=== PATIENT | male | born 2000 | race Hispanic/Latino ===

== ENCOUNTER 2024-09-20 19:34 | Observation (INO) | payer SELFPAY ==
[~2024-09-20] VITALS: Ht 172.7 cm; Wt 83.5 kg
[2024-09-20 20:01] LABS: APPEARANCE,URINE CLOUDY (CLEAR); BILIRUBIN,URINE NEGATIVE (NEGATIVE); COLOR,URINE YELLOW (YELLOW); GLUCOSE, URINE (UA) NEGATIVE (NEGATIVE); KETONES,URINE 5 mg/dL (NEGATIVE); LEUKOCYTE ESTERASE ,URINE NEGATIVE Leu/uL (NEGATIVE); NITRATE,URINE NEGATIVE (NEGATIVE); OCCULT BLOOD,URINE NEGATIVE (NEGATIVE); PROTEIN,URINE 30 mg/dL (NEGATIVE)
[2024-09-20 20:05] LABS: BASOPHILS # (AUTO) 0.04 K/uL (0.00-0.20); BASOPHILS % (AUTO) 0.2 % (0.0-5.0); EOSINOPHILS # (AUTO) 0.01 K/uL (0.00-0.70); EOSINOPHILS % (AUTO) 0.1 % (0.0-8.0); HEMATOCRIT 47.5 % (42-54); LYMPHOCYTES % (AUTO) 18.4 % (21.0-51.0); MEAN CORPUSCULAR HEMOGLOBIN 31.2 pg (27.0-33.0); MEAN CORPUSCULAR HGB CONC 36.4 g/dL (32.0-36.0); MEAN CORPUSCULAR VOLUME 85.7 fL (79-99); MONOCYTES # (AUTO) 1.4 K/uL (0.1-1.0); MONOCYTES % (AUTO) 8.4 % (3.0-13.0); NEUTROPHILS # (AUTO) 11.7 K/uL (1.8-7.7); NEUTROPHILS % (AUTO) 72.3 % (40.0-77.0); PLATELET COUNT (AUTO) 270 K/uL (130-400); RED BLOOD CELL COUNT(AUTO) 5.54 MIL/uL (4.50-6.20); RED CELL DISTRIBUTION WIDTH 11.8 % (11.0-15.5); WHITE BLOOD COUNT (AUTO) 16.2 K/uL (4.8-10.8)
[2024-09-20 20:05] LABS: ADD UA MICROSCOPIC YES
[2024-09-20 20:07] LABS: MUCUS,URINE MOD LPF (None Seen); OTHER CASTS, URINE 44 /LPF (None Seen); SQUAMOUS EPITHELIAL CELL,UR RARE /HPF (0-2)
[2024-09-20 20:09] LABS: AMPHET/METH SCREEN,URINE NEGATIVE (NEGATIVE); BARBITURATE SCREEN, URINE NEGATIVE (NEGATIVE); BENZODIAZEPINES SCREEN,URINE NEGATIVE (NEGATIVE); CANNABINOID SCREEN,URINE NEGATIVE (NEGATIVE); COCAINE SCREEN,URINE NEGATIVE (NEGATIVE); OPIATE SCREEN,URINE NEGATIVE (NEGATIVE); PHENCYCLIDINE SCREEN,URINE NEGATIVE (NEGATIVE)
[2024-09-20] MEDS: 0.9%NACL 1000ML 1,000 ML IV STA ×2 (20:13→20:34)
[2024-09-20] MEDS: ondanSETRON 4MG INJ IVP STA (20:13)
[2024-09-20 20:20] LABS: POTASSIUM 3.8 mmol/L (3.5-5.1)
[2024-09-20 20:24] LABS: MAGNESIUM 1.9 mg/dL (1.80-2.40)
--- NOTE | 2024-09-20 20:37 | ERN ---
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 Patient states he also noticed decreased urine output today. 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 Denies having any alcohol or drugs today. Allergies: Coded Allergies: No Known Allergies (Unverified Allergy, Unknown, 09/20/24) Past Medical History Past Medical History: No Pertinent History Surgical History: None Review of System Dictation Constitutional: Negative for fever,chills, and weight loss Eyes: Negative for injury, pain,redness, and discharge ENT: Negative for injury,pain or swelling Cardiovascular: Negative for chest pain, palpitations, and edema Respiratory: Negative for shortness of breath, cough, and wheezing, Abdomen/GI: Negative for abdominal pain, nausea, vomiting, diarrhea, and constipation Back: Negative for injury and pain : Negative for injury, bleeding and discharge MS/Extremity: Negative for injury and deformity Skin: Negative for rash, and discoloration Neuro: Negative for headache, weakness, numbness, tingling, and seizure Psych: Negative for suicide ideation, homicidal ideation, and hallucinations Review of Systems: was completed Initial Vital Sign VS Vital Signs Date Time Temp Pulse Resp B/P (MAP) Pulse Ox O2 Delivery O2 Flow Rate FiO2 09/20/24 19:37 99.9 101 20 112/70 99 Room Air 09/20/24 19:45 0 21 Physical Exam Dictation General: awake, alert, NAD Head/Face: Normocephalic, atraumatic Eyes: PERRL, EOMI, vision at baseline ENT: oral cavity clear, TMs clear, no signs of infection Neck: Trachea midline, supple, no nuchal rigidity Cardiovascular: RRR, normal S1/S2, No MRGs, no JVD Respiratory: CTAB, no respiratory distress, No rales or wheezes Abdomen: Soft, non-tender, non-distended, normal bowel sounds, no guarding or rebound. Skin: Warm, dry, normal turgor, no rash MS/Extremity: Pulses equal, no cyanosis, neurovascular intact, FROM Neuro: COAx4, GCS 15, strength 5/5, CN 2-12 intact, normal cerebellar exam, normal gait, Psych: Normal behavior, mood, and affect normal Results (Laboratory/Radiology) Laboratory/Radiology Laboratory Tests Test 09/20/24 19:48 09/20/24 19:57 Urine Color YELLOW (YELLOW) Urine Appearance CLOUDY (CLEAR) H Urine pH 5.0 (5.0-8.0) Urine Specific [place] 1.027 (1.001-1.031) Urine Protein 30 mg/dL (NEGATIVE) H Urine Glucose (UA) NEGATIVE mg/dL (NEGATIVE) Urine Ketones 5 mg/dL (NEGATIVE) H Urine Occult Blood NEGATIVE (NEGATIVE) Urine Nitrate NEGATIVE (NEGATIVE) Urine Bilirubin NEGATIVE mg/dL (NEGATIVE) Urine Urobilinogen 2.0 mg/dL (0.2-1.0) H Urine Leukocyte Esterase NEGATIVE Gio/uL Urine RBC 2-5 /HPF (0-1) H Urine WBC 2-5 /HPF (0-1) H Urine Squamous Epithelial Cells RARE /HPF (0-2) Urine Bacteria None /HPF (None Seen) Urine Hyaline Casts 11-25 /LPF (0-1 /LPF) H Urine Other Casts 44 /LPF (None Seen) Urine Opiates Screen NEGATIVE (NEGATIVE) Urine Barbiturates Screen NEGATIVE (NEGATIVE) Urine Phencyclidine Screen NEGATIVE (NEGATIVE) Urine Amphetamines Screen NEGATIVE (NEGATIVE) Urine Benzodiazepines Screen NEGATIVE (NEGATIVE) Urine Cocaine Screen NEGATIVE (NEGATIVE) Urine Marijuana (THC) Screen NEGATIVE (NEGATIVE) White Blood Count 16.2 K/uL (4.8-10.8) H Red Blood Count 5.54 MIL/uL (4.50-6.20) Hemoglobin 17.3 g/dL (14.0-18.0) Hematocrit 47.5 % (42-54) Mean Corpuscular Volume 85.7 fL (79-99) Mean Corpuscular Hemoglobin 31.2 pg (27.0-33.0) Mean Corpuscular Hemoglobin Concent 36.4 g/dL (32.0-36.0) H Red Cell Distribution Width 11.8 % (11.0-15.5) Platelet Count 270 K/uL (130-400) Mean Platelet Volume 9.5 fL (7.5-10.5) Immature Granulocyte % (Auto) 0.6 % (0-1) Neutrophils (%) (Auto) 72.3 % (40.0-77.0) Lymphocytes (%) (Auto) 18.4 % (21.0-51.0) L Monocytes (%) (Auto) 8.4 % (3.0-13.0) Eosinophils (%) (Auto) 0.1 % (0.0-8.0) Basophils (%) (Auto) 0.2 % (0.0-5.0) Neutrophils # (Auto) 11.7 K/uL (1.8-7.7) H Lymphocytes # (Auto) 3.0 K/uL (1.0-4.8) Monocytes # (Auto) 1.4 K/uL (0.1-1.0) H Eosinophils # (Auto) 0.01 K/uL (0.00-0.70) Basophils # (Auto) 0.04 K/uL (0.00-0.20) Absolute Immature Granulocyte (auto 0.10 K/uL (0-1) Nucleated Red Blood Cells 0.0 % (0.0-0.19) Red Blood Cell Morphology See comments Sodium Level 135 mmol/L (136-145) L Potassium Level 3.8 mmol/L (3.5-5.1) Chloride Level 92 mmol/L (101-111) L Carbon Dioxide Level 28 mmol/L (21-32) Blood Urea Nitrogen 23 mg/dL (7-18) H Creatinine 2.0 mg/dL (0.5-1.3) H Glomerular Filtration Rate Calc 47 mL/min (>90) Random Glucose 109 mg/dL (70-105) H Total Calcium 10.8 mg/dL (8.5-10.1) H Magnesium Level 1.90 mg/dL (1.80-2.40) Total Creatine Kinase 283 U/L (21-232) H Labs Reviewed?: Yes ED Course ED Course Orders Procedure Category Date Status Time Cbc With Differential LAB 09/20/24 Complete 19:40 Basic Metabolic Panel LAB 09/20/24 Complete 19:40 Creatine Kinase, Total LAB 09/20/24 Complete 19:40 Urinalysis Profile LAB 09/20/24 Complete 19:40 Drug Screen Urine LAB 09/20/24 Complete 19:40 Magnesium LAB 09/20/24 Complete 19:40 0.9%Nacl 1000ml (Ns PHA 09/20/24 Complete 1000ml) 19:40 Ondansetron 4mg Inj PHA 09/20/24 Complete (Zofran 4mg Inj) 19:41 0.9%Nacl 1000ml (Ns PHA 09/20/24 In Process 1000ml) 20:21 Current Medications Medications (Trade) Dose Ordered Sig/Ishaan Route PRN Reason Start Time Stop Time Status Last Admin Dose Admin Ondansetron HCl (zoFRAN 4MG INJ) 4 mg ONCE STAT IVP 09/20/24 19:41 09/20/24 19:42 DC 09/20/24 20:13 Sodium Chloride 1,000 ml @ 1,000 mls/hr Q1H STAT IV 09/20/24 19:40 09/20/24 20:39 DC 09/20/24 20:13 Sodium Chloride 1,000 ml @ 1,000 mls/hr Q1H STAT IV 09/20/24 20:21 09/20/24 21:20 09/20/24 20:34 Vital Signs Date Time Temp Pulse Resp B/P (MAP) Pulse Ox O2 Delivery O2 Flow Rate FiO2 09/20/24 19:45 99.1 88 18 142/66 99 Room Air* 0 21 09/20/24 19:37 99.9 101 20 112/70 99 Room Air Medical Decision Making MDM MDM: 23-year-old male with no past medical history coming in with complaints of generalized muscle spasms, nausea, and syncopal episode while at work. Patient states he also noticed decreased urine output today. 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 Denies having any alcohol or drugs [place] [id number], no anemia, no thrombocytopenia. Chemistry shows mild hyponatremia at 1:35 a.m., hypochloremia 92, QASIM BUN creatinine are elevated this could be related to dehydration. Magnesium is 1.9 and CK is 283. Urine shows proteinuria, but no infection process. Toxicology is negative. Patient received 2 L of NS in the emergency room. Patient is refusing a CT scan of the head. Educated patient is important to do CT scans that he has a syncopal episode to rule out any life-threatening etiology for her syncopal episode, patient understand but still refused CT scan. Patient will be admitted for observation for QASIM and dehydration. Spoke to Rowena AUTOMATIC DRILLING MACHINE OPERATOR for hospitalist, okay to admit. Differential diagnosis: QASIM, dehydration, electrolyte abnormality. Rationale: Tests considered and ordered secondary to shared decision making i nclude: labs, ECG and radiology Previous outside records reviewed: Old ER visits. Risk of complication and/or morbidity or mortality of patient management: None Medications-Per medication reconciliation Need for hospitalization: Patient does meet criteria for hospitalization. Need for emergency major/minor surgery: No There are no social concerns with this patient. Prescription drug management Prescriptions will include symptomatic care Patient's prior external medical records from other ER visits were reviewed by me as indicated. Prior testing and results from previous visits were reviewed. Prior tests were taken into account with medical decision making and resource utilization, independent historian/historians were used to obtain complete medical history. I independently interpreted the test that were performed, results were reviewed by me and considered findings on radiology if ordered. Medical management and examination interpretation discussions were had by me with other qualified healthcare professionals as indicated for the patient's care. DX & DISP Disposition: Inpatient Decision to Admit Date: Sep 20, 2024 Decision to Admit Time: 21:15 Departure Impression: Primary Impression: Dehydration Additional Impressions: QASIM (acute kidney injury), Syncope Condition: Stable Referrals: CASSIDY PRIEST (PCP) I have reviewed the case, and I agree with, Diagnosis and Plan GINA CURTIS NP Sep 20, 2024 20:37
--- NOTE | 2024-09-20 22:22 | HP ---
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 Seen and examined patient int he ER awake,alert and coherent,moving all extremities equally.Patient denies headache,dizziness,visual disturbance ,chest pain,palpitation and shortness of breath. Latest vital signs temperature 98.8, heart rate 80, blood pressure 128/62 saturation 99% on room air. Labs: WBC 16, hemoglobin 17, hematocrit 47 platelet count 270. Sodium 135, chloride 92 BUN 23, creatinine 2.0, GFR 47 glucose 109, calcium 10 total CK 283. Urine toxicology negative. Urinalysis appears cloudy significant for urine RBC 2-5, urine WBC 2-5 with protein and ketones and urobilinogen. While in the ER patient received 2 L NS bolus, Zofran 4 mg IV. ER called and recommended to admit the patient. REVIEW OF SYSTEMS CONSTITUTIONAL: Complains of generalized muscle spasm Denies fevers, chills, or night sweats. No unintentional weight loss reported. NEUROLOGICAL: Complaints of syncopal episode today Denies headache, amaurosis fugax, motor weakness, sensory deficit, vertigo/spinning sensation, gait abnormalities, or tremors. ENT: No hearing loss, otalgia, otorrhea, rhinitis, rhinorrhea, hoarseness, or sore throat. CARDIOVASCULAR: Denies any exertional angina, dyspnea on exertion, orthopnea, paroxysmal nocturnal dyspnea, palpitations, life-threatening arrhythmias, claudication. PULMONARY: Denies any shortness of breath, cough, phlegm/sputum, hemoptysis, pleuritic chest pain. SLEEP: Denies morning headaches, daytime somnolence or napping. Denies difficulty falling asleep, staying asleep, waking from sleep. Denies knowledge of snoring. GASTROINTESTINAL: Denies any type of dysphagia to either liquids or solids. Denies nausea, vomiting, pyrosis, early satiety, abdominal pain, diarrhea, constipation, or changes in stool consistency or caliber. Denies coffee-ground emesis, hematemesis, hematochezia, or melanotic stools. GENITOURINARY: Denies frequency, urgency, nocturia, hematuria or incontinence (Storage/Irritative symptoms.) Low urinary stream, straining to void, urinary intermittency or hesitancy, splitting of the voiding stream, terminal dribbling. ENDOCRINOLOGIC: Denies polyuria, polydipsia, polyphagia or heat/cold intoleranc es. HEMATOLOGIC: Denies thrombophilia/previous clots, or coagulopathy/bleeding disorders. ONCOLOGIC: Denies personal history of malignancy. DERMATOLOGIC: Denies rashes or pruritus. PSYCHIATRIC: Denies any suicidal or homicidal ideation. Denies hallucinations. PAST MEDICAL HISTORY: [ Patient denies ] PAST SURGICAL HISTORY: [ Patient denies ] PAST SOCIAL HISTORY: [Patient lives with . Patient denies alcohol tobacco and recreational drug use ] FAMILY HISTORY: [ Noncontributory ] Coded Allergies: No Known Allergies (Unverified Allergy, Unknown, 09/20/24) PHYSICAL EXAM GENERAL APPEARANCE: The patient is awake, alert, and oriented, in no acute cardiopulmonary distress. NEUROLOGICAL: Cranial nerves II-XII grossly intact. Motor is 5/5 in bilateral upper and lower extremities proximal to distal. No sensory deficits. HEENT: Face is symmetric. Pupils are equal and reactive. Extraocular movements are intact. NECK: Supple. No JVD. No thyromegaly. No submental, submandibular, pre- /postauricular, occipital or supraclavicular lymphadenopathy. CHEST: Normal chest expansion. No Telemetry. LUNGS: Absence of any rales, rhonchi or any wheezing. CARDIOVASCULAR: Regular. S1 and S2 normal. No appreciable rubs, murmurs or gallops. ABDOMEN: Soft, nontender, and nondistended. There is no rebound, voluntary guarding, or rigidity. : Deferred. No Hwang. EXTREMITIES: Complains of muscle soreness on bilateral upper extremities . Non-edematous and not cyanotic. No clubbing. Good capillary refill. SKIN: No skin breakdown. Vital Sign (Last 24 Hours) 09/20/24 19:45 Temp 99.1 Pulse 88 Resp 18 B/P (MAP) 142/66 Pulse Ox 99 O2 Delivery Room Air* O2 Flow Rate 0 FiO2 21 LABS: Laboratory: Test 09/20/24 19:57 09/20/24 19:48 Range/Units White Blood Count 16.2 H 4.8-10.8 K/uL Red Blood Count 5.54 4.50-6.20 MIL/uL Hemoglobin 17.3 14.0-18.0 g/dL Hematocrit 47.5 42-54 % Mean Corpuscular Volume 85.7 79-99 fL Mean Corpuscular Hemoglobin 31.2 27.0-33.0 pg Mean Corpuscular Hemoglobin Concent 36.4 H 32.0-36.0 g/dL Red Cell Distribution Width 11.8 11.0-15.5 % Platelet Count 270 130-400 K/uL Mean Platelet Volume 9.5 7.5-10.5 fL Immature Granulocyte % (Auto) 0.6 0-1 % Neutrophils (%) (Auto) 72.3 40.0-77.0 % Lymphocytes (%) (Auto) 18.4 L 21.0-51.0 % Monocytes (%) (Auto) 8.4 3.0-13.0 % Eosinophils (%) (Auto) 0.1 0.0-8.0 % Basophils (%) (Auto) 0.2 0.0-5.0 % Neutrophils # (Auto) 11.7 H 1.8-7.7 K/uL Lymphocytes # (Auto) 3.0 1.0-4.8 K/uL Monocytes # (Auto) 1.4 H 0.1-1.0 K/uL Eosinophils # (Auto) 0.01 0.00-0.70 K/uL Basophils # (Auto) 0.04 0.00-0.20 K/uL Absolute Immature Granulocyte (auto 0.10 0-1 K/uL Nucleated Red Blood Cells 0.0 0.0-0.19 % Red Blood Cell Morphology See comments Sodium Level 135 L 136-145 mmol/L Potassium Level 3.8 3.5-5.1 mmol/L Chloride Level 92 L 101-111 mmol/L Carbon Dioxide Level 28 21-32 mmol/L Blood Urea Nitrogen 23 H 7-18 mg/dL Creatinine 2.0 H 0.5-1.3 mg/dL Glomerular Filtration Rate Calc 47 >90 mL/min Random Glucose 109 H 70-105 mg/dL Total Calcium 10.8 H 8.5-10.1 mg/dL Magnesium Level 1.90 1.80-2.40 mg/dL Total Creatine Kinase 283 H 21-232 U/L Urine Color YELLOW YELLOW Urine Appearance CLOUDY H CLEAR Urine pH 5.0 5.0-8.0 Urine Specific [place] 1.027 1.001-1.031 Urine Protein 30 H NEGATIVE mg/dL Urine Glucose (UA) NEGATIVE NEGATIVE mg/dL Urine Ketones 5 H NEGATIVE mg/dL Urine Occult Blood NEGATIVE NEGATIVE Urine Nitrate NEGATIVE NEGATIVE Urine Bilirubin NEGATIVE NEGATIVE mg/dL Urine Urobilinogen 2.0 H 0.2-1.0 mg/dL Urine Leukocyte Esterase NEGATIVE NEGATIVE Gio/uL Urine RBC 2-5 H 0-1 /HPF Urine WBC 2-5 H 0-1 /HPF Urine Squamous Epithelial Cells RARE 0-2 /HPF Urine Bacteria None None Seen /HPF Urine Hyaline Casts 11-25 H 0-1 /LPF /LPF Urine Other Casts 44 None Seen /LPF Urine Opiates Screen NEGATIVE NEGATIVE Urine Barbiturates Screen NEGATIVE NEGATIVE Urine Phencyclidine Screen NEGATIVE NEGATIVE Urine Amphetamines Screen NEGATIVE NEGATIVE Urine Benzodiazepines Screen NEGATIVE NEGATIVE Urine Cocaine Screen NEGATIVE NEGATIVE Urine Marijuana (THC) Screen NEGATIVE NEGATIVE Current Medications Medications (Trade) Dose Ordered Sig/Ishaan Route PRN Reason Start Time Stop Time Status Last Admin Dose Admin Ondansetron HCl (zoFRAN 4MG INJ) 4 mg ONCE STAT IVP 09/20/24 19:41 09/20/24 19:42 DC 09/20/24 20:13 4 MG Sodium Chloride 1,000 ml @ 1,000 mls/hr Q1H STAT IV 09/20/24 19:40 09/20/24 20:39 DC 09/20/24 20:13 1,000 MLS/HR Sodium Chloride 1,000 ml @ 1,000 mls/hr Q1H STAT IV 09/20/24 20:21 09/20/24 21:20 DC 6/17/25 20:34 1,000 MLS/HR DIAGNOSTICS / RADIOLOGY: [ ] ASSESSMENT: Dehydration POA Acute kidney injury POA Mild rhabdomyolysis POA Suspected urinary tract infection POA Acute leukocytosis POA PLAN: We will admit patient in medical floor We will start on regular diet We will start NS @ 100 ml / hr x2 bags and re evaluate We will start patient on Rocephin 1 g IV daily We will start on Famotidine 20 mg p.o. daily for GI prophylaxis We will replace electrolytes as needed per protocol We will add prn medication for fever,pain,cough , nausea and vomiting We will request labs in am Further orders to follow depending on above results Case discussed with attending physician and came up with above treatment and plan of care. ADVANCED CARE PLANNING 1. Which of the following were discussed? Hospice Care - No Therapeutic options - Yes Advance Directives - No Other discussions - 2. Discussed with who? Patient 3. Voluntary nature of this service was explained to the patient? Yes 4. Amount of time spent - _20 5. Reviewed by Physician? (if this service was performed by NPP) Yes Patient seen and examined by me. Agree with note by COUNTER HELP SEE ADDITIONAL ORDERS PER CHART DISCUSSED WITH NURSING STAFF ALIS NOGUEIRA GREIGE GOODS INSPECTOR Sep 20, 2024 22:22
[2024-09-20] MEDS ORDERED: ondanSETRON 4MG INJ IV PRN (23:30)
[2024-09-20] MEDS ORDERED: acetaMINOPHEN 325 MG TAB PO PRN ×2 (23:30)
[2024-09-20] MEDS: 0.9%NACL 1000ML 1,000 ML IV SCH (23:50)
[2024-09-20] MEDS: cefTRIAXone 1G VIAL IVPB SCH (23:50)
--- NOTE | 2024-09-21 00:57 | NUR ---
REPORT GIVEN TO NURSE BYRNE, ALL QUESTIONS ANSWERED AT THIS TIME. NURSE EXPECTING PT ARRIVAL TO THE UNIT.
[2024-09-21 01:10] VITALS: BP 133/90; PULSE 61; RESP 19; TEMP 97.9
[2024-09-21 01:35] VITALS: O2SAT 100
[2024-09-21 04:02] VITALS: BP 119/50; PULSE 61; RESP 18; TEMP 97.8
[2024-09-21 06:05] LABS: BASOPHILS # (AUTO) 0.02 K/uL (0.00-0.20); BASOPHILS % (AUTO) 0.2 % (0.0-5.0); EOSINOPHILS # (AUTO) 0.13 K/uL (0.00-0.70); EOSINOPHILS % (AUTO) 1.3 % (0.0-8.0); HEMATOCRIT 39.4 % (42-54); IMMATURE GRANULOCYTE ABSOLUTE 0.05 K/uL (0-1); LYMPHOCYTES # (AUTO) 3.2 K/uL (1.0-4.8); LYMPHOCYTES % (AUTO) 32.1 % (21.0-51.0); MEAN CORPUSCULAR HEMOGLOBIN 31.7 pg (27.0-33.0); MEAN CORPUSCULAR HGB CONC 35.5 g/dL (32.0-36.0); MEAN CORPUSCULAR VOLUME 89.1 fL (79-99); MONOCYTES # (AUTO) 1.3 K/uL (0.1-1.0); MONOCYTES % (AUTO) 12.4 % (3.0-13.0); NEUTROPHILS # (AUTO) 5.4 K/uL (1.8-7.7); NEUTROPHILS % (AUTO) 53.5 % (40.0-77.0); PLATELET COUNT (AUTO) 203 K/uL (130-400); RED BLOOD CELL COUNT(AUTO) 4.42 MIL/uL (4.50-6.20); RED CELL DISTRIBUTION WIDTH 12.1 % (11.0-15.5); WHITE BLOOD COUNT (AUTO) 10.1 K/uL (4.8-10.8)
[2024-09-21 06:31] LABS: ALBUMIN 3.8 g/dL (3.5-5.0); BILIRUBIN,TOTAL 0.5 mg/dL (0.2-1.0); CREATININE 1.1 mg/dL (0.5-1.3); MAGNESIUM 2.1 mg/dL (1.80-2.40); POTASSIUM 3.1 mmol/L (3.5-5.1)
[2024-09-21 08:00] VITALS: BP 123/58; PULSE 65; RESP 17; TEMP 97.9; O2SAT 100
[2024-09-21] MEDS: FAMOTIDINE 20MG TAB PO SCH (08:13)
[2024-09-21] MEDS: PoTASSium chloRIDE 20MEQ ER 20 MEQ ERTAB PO ONE ×2 (09:35→11:46)
[2024-09-21 12:00] VITALS: BP 112/61; PULSE 44; RESP 17; TEMP 97.9
[2024-09-21] MEDS ORDERED: FAMO20TA8 PO (13:29)
--- NOTE | 2024-09-21 13:37 | DS ---
Discharge Summary Hospital Course Summary: DATE OF ADMISSION:[09/20/2024] DATE OF DISCHARGE:[09/21/2024] DISPOSITION:[Home] CONDITION:[Medically stable] CONSULTANTS:[None] FOLLOW UP APPOINTMENTS:[PCP 2 to 3 days] PROCEDURES:[none] IMAGING: report attached to summary MICROBIOLOGY: report attached to summary ACTIVITY:[Independent] HOME MEDICATIONS: see [facility] NEW MEDICATIONS:[Famotidine 20 mg p.o. 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 Patient also complained that he pass out and was witnessed b y his coworkers. Right away he was brought to emergency department for further evaluation. On admission patient's lab work showed that patient was very dehydrated creatinine was 2.0 BUN 23 GFR 47. After receiving fluids resuscitation and continues foot over the night two days patient creatinine is 1.1 BUN 21 GFR 96. Patient's potassium also was 3.1 and patient receive two doses of 40 mEq of potassium. Toxicology was negative. Today patient feels much better compared to the previous day. All lab works were reviewed. Patient is cleared to be discharged home follow up outpatient with the PCP in 2 to 3 days. Patient was advised on proper hydration and vitamin supplements including potassium Procedure(s): REVIEW OF SYSTEMS CONSTITUTIONAL: Denies any generalized muscle spasms Denies fevers, chills, or night sweats. No unintentional weight loss reported. NEUROLOGICAL: Denies any syncopal episodes today Denies headache, amaurosis fugax, motor weakness, sensory deficit, vertigo/spinning sensation, gait abnormalities, or tremors. ENT: No hearing loss, otalgia, otorrhea, rhinitis, rhinorrhea, hoarseness, or sore throat. CARDIOVASCULAR: Denies any exertional angina, dyspnea on exertion, orthopnea, paroxysmal nocturnal dyspnea, palpitations, life-threatening arrhythmias, claudication. PULMONARY: Denies any shortness of breath, cough, phlegm/sputum, hemoptysis, pleuritic chest pain. SLEEP: Denies morning headaches, daytime somnolence or napping. Denies diffi culty falling asleep, staying asleep, waking from sleep. Denies knowledge of snoring. GASTROINTESTINAL: Denies any type of dysphagia to either liquids or solids. Denies nausea, vomiting, pyrosis, early satiety, abdominal pain, diarrhea, constipation, or changes in stool consistency or caliber. Denies coffee-ground emesis, hematemesis, hematochezia, or melanotic stools. GENITOURINARY: Denies frequency, urgency, nocturia, hematuria or incontinence (Storage/Irritative symptoms.) Low urinary stream, straining to void, urinary intermittency or hesitancy, splitting of the voiding stream, terminal dribbling. ENDOCRINOLOGIC: Denies polyuria, polydipsia, polyphagia or heat/cold int olerances. HEMATOLOGIC: Denies thrombophilia/previous clots, or coagulopathy/bleeding disorders. ONCOLOGIC: Denies personal history of malignancy. DERMATOLOGIC: Denies rashes or pruritus. PSYCHIATRIC: Denies any suicidal or homicidal ideation. Denies hallucinations. Assessment/Plan: ASSESSMENT: Acute Dehydration POA Acute kidney injury POA Mild rhabdomyolysis POA Suspected urinary tract infection POA Acute leukocytosis POA Electrolyte imbalance hyponatremia, hypokalemia POA Time spent arranging discharge: 31-60 minutes ATTESTATION BY PHYSICIAN I have seen and examined the patient. I reviewed the documentation, medical decision making, and treatment plan as noted by the mid-level provider above. I agree with the findings and plan of care. HARRY LUEVANO MD, KATARZYNA B PROBLEM MANAGER Sep 21, 2024 13:37
--- NOTE | 2024-09-21 13:47 | NUR ---
DISCHARGE DISCHARGE ORDERS GIVEN FOR PATIENT TO BE DISCHARGED HOME. DISCHARGE INSTRUCTIONS AND DOCUMENTATION GIVEN TO PATIENT AND AT BEDSIDE. VOICED UNDERSTANDING. IV DISCONTINUED BY CARLOZ, TENNIS COURT ATTENDANT CATHETER INTACT, NO S/S OF INFECTION NOTED TO AREA. PATIENT TOLERATED WELL. BANDS REMOVED. PATIENT PENDING TRANSPORTATION.
--- NOTE | 2024-09-21 14:48 | NUR ---
DCP: HOME Pt currently lives with Karla Choudhury [phone] and 10month old dgt. Pt does not report any insecurities with food, detention, and/or utilities. Pt does not use any DME, home health, and/or provider services. PCP was Harsh Garg and uses [facility] for any RX needs. At [place] pt will go home and family will assist with transportation. Addendum: 09/21/24 at 1451 by JUS RICHARDS SS Amended: Links added.
--- NOTE | 2024-09-21 15:26 | NUR ---
DISCHARGE PATIENT LEFT VIA WHEELCHAIR ACCOMPANIED BY BROTHER AND . NO S/S OF DISTRESS NOTED.
== END 2024-09-21 15:00 | disposition home or self-care (01) ==
LOC: EDH 19:34 → EDHIP 19:35 → 4AH 09-21 01:09
PROVIDERS: ADMIT Internal Medicine; ATTEND Internal Medicine
DX: E86.0 Dehydration (principal); N17.9 Acute kidney failure, unspecified; M62.82 Rhabdomyolysis; D72.829 Elevated white blood cell count, unspecified; E87.8 Other disorders of electrolyte and fluid balance, not elsewhere classified; E87.6 Hypokalemia; E87.1 Hypo-osmolality and hyponatremia; Z79.899 Other long term (current) drug therapy
CPT/HCPCS: 36415; 80048; 80053; 80305; 81001; 82550; 83735; 85025; 87086; 96361; 96365; 96375; G0378; J0696; J2405